=== PATIENT | female | born 1965 | race Caucasian/White ===

== ENCOUNTER → 2016-05-22 | Outpatient (CLI) | payer BC ==
[2016-05-22 14:03] LABS: EKG EKG PERFORMED
[2016-05-22 14:28] LABS: Basophils # (A) 0.1 k/uL (0-0.2); Basophils % (A) 1 %; CH 25.6; Eosinophils # (A) 0.2 k/uL (0-0.7); Eosinophils % (A) 2 %; HCT 39.8 % (34.0-46.0); HDW 2.82; HGB 12.4 gm/dL (11.4-16.0); Hypochromasia Moderate; Luc # (Auto) 0.25; Luc % (Auto) 4; Lymphocytes # (A) 1.6 k/uL (1.0-4.8); Lymphocytes % (A) 25 %; MCH 25.9 pg (25.0-35.0); MCHC 31.3 g/dL (31.0-37.0); MCV 82.9 fL (80.0-100.0); Mean Platelet Volume 8.1; Monocytes # (A) 0.5 k/uL (0-1.0); Monocytes % (A) 7 %; Neutrophils % (A) 61 %; Partial Thromboplastin Time 22.2 sec (22.0-30.0); Prothrombin Time 10.2 sec (9.0-12.0); RDW 15.2 % (11.5-15.5); WBC 6.6 k/uL (3.8-10.6); WBC (Perox) 7.15
[2016-05-22 14:30] LABS: Appearance,Urine Clear (Clear); Bilirubin,Urine Negative (Negative); Glucose,Urine (UA) Trace (Negative); Ketones,Urine Negative (Negative); Leukocyte Esterase,Urine Negative (Negative); Nitrite,Urine Negative (Negative); PH, Urine 6.5 (5.0-8.0); Protein,Urine Trace (Negative); Specific Gravity,Urine 1.019 (1.001-1.035); UA Billing (MACRO vs. MICRO) CHEM
[2016-05-22 14:42] LABS: ALT 20 U/L (9-52); AST 18 U/L (14-36); Alkaline Phosphatase 74 U/L (38-126); Anion Gap 9 mmol/L; Blood Urea Nitrogen 11 mg/dL (7-17); Calcium 10.3 mg/dL (8.4-10.2); Carbon Dioxide 29 mmol/L (22-30); Chloride 103 mmol/L (98-107); Glucose 100 mg/dL (74-99); Non-African American GFR(MDRD) >60 (>60 ml/min/1.73 sqM); Potassium 4.2 mmol/L (3.5-5.1); Sodium 141 mmol/L (137-145); Total Bilirubin 0.5 mg/dL (0.2-1.3); Total Protein 7.2 g/dL (6.3-8.2)
== END ==
LOC: LABPAT 13:54
PROVIDERS: ATTEND Orthopaedic Surgery
DX: Z01.810 Encounter for preprocedural cardiovascular examination (principal); Z01.812 Encounter for preprocedural laboratory examination
CPT/HCPCS: 80053; 81003; 85025; 85610; 85730; 87070; 93005

== ENCOUNTER → 2016-06-03 | Day surgery (SDC) | payer BC ==
[2016-05-28 16:38] VITALS: BMI 44.3
[~2016-06-03] MED LIST: ACETAMINOPHEN TAB 500 MG TAB PO ONE; DEXAMETHASONE SOD PHOSPHATE 10 MG/ML 1 ML VIAL IV ONE; HYDROmorphone 1 MG/ML 1 ML SYRINGE IVP PRN; LACTATED RINGERS 1,000 ML IV SCH; MELOXICAM 7.5 MG TAB PO ONE; MIDAZOLAM 2 MG/2 ML VIAL IV PRN; ONDANSETRON 4 MG/2 ML VIAL IVP ONE; ROPIVACAINE 246.25 MG, EPINEPHrine 0.5 MG, KETOROLAC 30 MG, cloNIDine HCL/PF 80 MCG, WA... MISCELLANE ONE; SCOPOLAMINE 1.5MG/72HR PATCH TRANSDERM ONE; TRANEXAMIC ACID 1,000 MG in SODIUM CHLORIDE 0.9% 100 ML IVPB ONE; ceFAZolin 3 GM in SODIUM CHLORIDE 0.9% 100 ML IVPB ONE
[2016-06-03 08:07] VITALS: BP 146/81; PULSE 66; RESP 18; TEMP 98.7
--- NOTE | 2016-06-03 10:35 | P.PN ---
Progress Note - Text The patient was seen in the preoperative area. There was concern of some small skin lesions around the left knee. I inspected the left knee and found 3-4 small scab-like lesions in the area of these incision site. I discussed with the patient at length the risk of infection is increased with recent skin lesions in the area of the knee. After lengthy discussion, the patient is aware of this fact, and I have planned to cancel surgery at this time, recheck her in the office in 1 week, and if the skin lesions of healed, have her scheduled for knee replacement shortly thereafter. She will then be discharged home with instructions to follow-up with me next week in the office.
== END ==
LOC: UNDOADMIN 07:04 → OR 07:04 → 2ORMAIN 07:04 → EDSTATUS 09:40 → UNDODISIN 10:15
PROVIDERS: ATTEND Orthopaedic Surgery
DX: M17.12 Unilateral primary osteoarthritis, left knee (principal); L98.9 Disorder of the skin and subcutaneous tissue, unspecified; Z53.09 Procedure and treatment not carried out because of other contraindication
CPT/HCPCS: J0171; J1885; J2795; J0735

== ENCOUNTER 2016-06-11 11:15 | Inpatient (IN) | payer BC ==
[2016-06-10 13:33] VITALS: BMI 44.3
[~2016-06-11 11:15] MED LIST changes: -LACTATED RINGERS 1,000 ML IV SCH; -SCOPOLAMINE 1.5MG/72HR PATCH TRANSDERM ONE
[2016-06-11] MEDS ORDERED: LIDOCAINE 1% 20 ML VIAL (10MG/ML) FOR IV START INTRADERMA ONE ×2 (11:30→12:04)
[2016-06-11] MEDS: LACTATED RINGERS 1,000 ML IV SCH ×2 (12:04→22:50)
[2016-06-11] MEDS ORDERED: fentaNYL (PF) 50 MCG/ML 2 ML AMP IV ONE (12:08)
[2016-06-11] MEDS ORDERED: SODIUM CHLORIDE 0.9% 100 ML BAG ONE (13:34)
[2016-06-11] MEDS ORDERED: fentaNYL (PF) 50 MCG/ML 2 ML AMP ONE (13:34)
[2016-06-11] MEDS ORDERED: PROPOFOL 10 MG/ML 20 ML VIAL IV ONE (13:34)
[2016-06-11] MEDS ORDERED: MIDAZOLAM 2 MG/2 ML VIAL ONE (13:34)
[2016-06-11] MEDS ORDERED: TRANEXAMIC ACID 1,000 MG/10 ML VIAL ONE (13:34)
[2016-06-11] MEDS ORDERED: ceFAZolin 3,000 MG in SODIUM CHLORIDE 0.9% IRRIGATIO 3,000 ML IRRIGATION ONE (14:06)
[2016-06-11] MEDS ORDERED: LACTATED RINGERS 1,000 ML IV ONE (14:19)
--- NOTE | 2016-06-11 15:03 | P.OP ---
Date of Procedure: 06/11/16 Preoperative Diagnosis: Severe osteoarthritis left knee Postoperative Diagnosis: Severe osteoarthritis left knee Procedure(s) Performed: Left total knee arthroplasty Implants: Botello [employer] Nephew Oxinium femoral component size 5, left Botello [employer]hew Nora II left nonporous tibial baseplate size 5 Botello [employer] Nephew size 9 mm Legion XLPE dished articular insert, size 5-6 Bot[employer]hew Nora II resurfacing patellar component, 32 mm All components were cemented using Carol bone cement.. The articulation is ceramic on polyethylene. Anesthesia: spinal Surgeon: Albert Box Embalmer Apprentice #1: Radha Zhu Embalmer Apprentice #2: Vane Hurt Estimated Blood Loss (ml): 50 Pathology: other (Bone and cartilage) Condition: stable Disposition: PACU Indications for Procedure: After failure of conservative treatment we discussed the surgical and nonsurgical treatment options at length. Patient wishes to proceed with a total knee arthroplasty. Complications specific to this procedure were discussed at length, including but not limited to infection, bleeding, stiffness , and nerve injury. Patient is aware of all these complications and informed consent was obtained Operative Findings: The operative findings are consistent with severe osteoarthritis of the left knee Description of Procedure: Patient was seen in the preoperative area consent was reviewed and operative site was marked with a skin marker. An adductor canal pain catheter was placed by anesthesia in the preoperative area. Patient was then brought to the operating room and given preoperative antibiotics intravenously. A spinal anesthetic was administered by the anesthesia department. A tourniquet was placed on the upper thigh and the lower extremity was prepped and draped in usual sterile fashion. A gram of transexamic acid was given. A universal timeout was then performed which confirmed the patient's name, surgical site, ALLERGIES, and consent. The lower extremity was then exsanguinated and tourniquet was inflated to 250 mmHg. A standard and anterior midline approach to the knee was performed. The skin and subcutaneous tissue was dissected down to the patellar tendon. A medial parapatellar arthrotomy was then performed. The knee was then extended, the patellar was everted, and the knee was again flexed. Anterior horns of both menisci were excised, and a release was performed to the posterior medial aspect of the knee. On gross visual inspection, there was complete loss of articular cartilage in the medial and patellofemoral joint spaces. There was also significant cartilage damage in the lateral compartment. There were multiple periarticular osteophytes which were then removed with a Ronguer. The femoral canal was then opened with the appropriate drill, and the intramedullary femoral cutting guide was then placed and set for 4 of valgus. The distal femoral cutting block was then pinned in place, and the distal femur was then cut. The cutting block was then removed and the cut was checked for flatness. Next, the sizing guide was then placed and set for 3 external rotation based off of the epicondylar axis and Whitesides line. After the femur was sized, the appropriate 4-in-1 cutting block was then pinned in place. The anterior condyles were cut without notching. The posterior and chamfer cuts were performed while protecting the collateral ligaments. The cutting block was then removed, and the femoral canal was plugged with autologous bone. Attention was then directed to the tibia. The remaining ACL was removed with a Ronguer, and the tibia was then gently subluxed forward with a large bent knee retractor. Any remaining menisci was excised. The posterior lateral corner was cauterized in order to cauterize the lateral geniculate artery. The extra medullary tibial cutting guide was then placed, set for the appropriate rotation , slope, and depth of resection. The proximal tibia cutting guide was then pinned in place. Proximal tibia was then cut and sized. Next trials were then placed with the appropriate-sized insert. The knee was able to fully extend and flex to 130 and was stable throughout all range of motion. The knee was then extended, patella everted. Patella was then measured, and then using an osteotomy guide, the patella was cut at the appropriate level. The patella was then measured and drilled and the patella trial was then placed. The knee was then taken through range of motion with the patella trial and the patella tracked normally. The knee was then extended patella trial was then removed and the patella was everted. Knee was then flexed and lug holes were drilled through the femoral trial and the femoral trial was then removed. The tibial was then exposed, and the tibial broach guide was then pinned in place after it was set for the appropriate rotation to allow for the most coverage without overhang. The tibia was then reamed and broached. The cut surfaces of bone were then irrigated with pulsatile lavage. The posterior structures were injected with the ropivacaine solution. The knee was also irrigated with Irrisept solution. The components were then opened, the cement was mixed, and the components were then cemented in place. The cement was allowed to harden with the knee in full extension. While the cement was hardening, the remaining soft tissues were then injected with a ropivacaine solution, which consisted of 246.25 mg of ropivacaine, 0.5 mg of epinephrine, 30 mg of Toradol, 80 g of clonidine, and 48.45 mL of sterile water, for a total of 100 mL of fluid injected. After the cemented hardened. The tourniquet was released, and hemostasis was obtained. A second gram of transexamic acid was given. The knee was again irrigated. The knee was again taken through range of motion and found to be stable throughout all range of motion of 0-130 , and the patella tracked normally. The fascia was then closed with #2 strata fix suture. The subcutaneous tissue was closed with 3-0 Vicryl and 3-0 strata fix. Dermabond tape was used for the skin and placed with the knee in flexion. The patient was placed in a sterile dressing. Patient was then transferred to recovery room in stable condition. The golf player assistant FELICITAS Salinas was required due the complexity surgery and the need for a skilled surgical services tech. She assisted in positioning, draping , retraction, and closure of the wound.
[2016-06-11] MEDS ORDERED: MAGNESIUM HYDROXIDE 2,400 MG/10 ML CUP PO PRN (15:23)
[2016-06-11] MEDS ORDERED: HYDROmorphone 1 MG/ML 1 ML SYRINGE IVP PRN ×3 (15:23)
[2016-06-11] MEDS ORDERED: ONDANSETRON 4 MG/2 ML VIAL IVP PRN (15:23)
[2016-06-11] MEDS ORDERED: NA PHOS,M-B/NA PHOS,DI-BA 133 ML ENEMA RECTAL PRN (15:23)
[2016-06-11] MEDS ORDERED: DIAZEPAM 5 MG TAB PO PRN ×2 (15:23)
[2016-06-11] MEDS ORDERED: NALOXONE 0.4 MG/ML 1 ML VIAL IV PRN (15:23)
[2016-06-11] MEDS ORDERED: HYDROcodone/APAP 5-325MG 1 EACH TAB PO PRN (15:23)
[2016-06-11] MEDS ORDERED: BISACODYL 10 MG SUPP RECTAL PRN (15:23)
--- NOTE | 2016-06-11 15:56 | XR ---
EXAMINATION TYPE: XR knee limited LT DATE OF EXAM: 06/11/2016 3:42 PM COMPARISON: NONE HISTORY: Knee replacement TECHNIQUE: 2 view left knee FINDINGS: Postsurgical changes are present. Tibial and femoral components of in place. No acute fract ures are evident IMPRESSION: 1. No acute fractures post knee replacement.
[2016-06-11] MEDS: SODIUM CHLORIDE 0.9% 1,000 ML IV SCH (16:22)
[2016-06-11] MEDS: HYDROcodone/APAP 5-325MG 1 EACH TAB PO PRN (18:28)
[2016-06-11] MEDS: hydrOXYzine PAMOATE 25 MG CAP PO PRN (18:29)
[2016-06-11] MEDS: SENNOSIDES-DOCUSATE SODIUM 1 EACH TAB PO SCH (20:44)
[2016-06-11] MEDS: ASPIRIN 325 MG TAB PO SCH (20:44)
[2016-06-11] MEDS: ceFAZolin 3 GM in SODIUM CHLORIDE 0.9% 100 ML IVPB SCH (23:00)
[2016-06-12] MEDS: SODIUM CHLORIDE 0.9% 1,000 ML IV SCH (05:23)
[2016-06-12] MEDS: hydrOXYzine PAMOATE 25 MG CAP PO PRN ×3 (07:07→19:01)
[2016-06-12] MEDS: HYDROcodone/APAP 5-325MG 1 EACH TAB PO PRN ×3 (07:07→19:01)
--- NOTE | 2016-06-12 08:03 | P.PN ---
Subjective Principal diagnosis: Status post total left knee arthroplasty This is a well-appearing 50-year-old female who is status post total left knee arthroplasty. This is postop day #1. Patient was seen and evaluated at bedside by Dr. Box. Patient has been up and walking to the bathroom but patient has not been up with physical therapy yet. Patient has no new complaints and is doing well. Objective - Vital Signs Vital signs: Vital Signs Temp 98.0 F 06/12/16 07:41 Pulse 60 06/12/16 07:41 Resp 17 06/12/16 07:41 BP 125/71 06/12/16 07:41 Pulse Ox 97 06/12/16 07:41 Intake & Output 06/11/16 06/12/16 06/12/16 18:59 06:59 18:59 Intake Total 4500 640 Output Total 50 1100 400 Balance 4450 -460 -400 Intake: IV 4500 640 Sodium Chloride 0.9% 1, 640 000 ml @ 80 mls/hr IV . [id number] RUI Rx#:[id number] Output: Urine 1100 400 Estimated Blood Loss 50 Other: Voiding Method Toilet # Voids 1 - Exam Vital signs are stable. Calf is soft and nontender. Incision is clean, dry, and intact. Neurovascular status intact. Patient has full foot and ankle motion. Assessment and Plan (1) Status post total knee replacement Status: Acute (2) Osteoarthritis of left knee Status: Acute Plan: Weightbearing as tolerated with a walker CPM daily Daily dressing changes, keep incision clean and dry Possible discharge home tomorrow.
[2016-06-12 08:17] LABS: Basophils % (A) 0 %; CH 26.1; CHCM 32.2; Eosinophils # (A) 0.1 k/uL (0-0.7); Eosinophils % (A) 1 %; HCT 35.5 % (34.0-46.0); HDW 2.97; HGB 11.8 gm/dL (11.4-16.0); Hypochromasia Slight; Luc # (Auto) 0.23; Luc % (Auto) 2; Lymphocytes # (A) 1.9 k/uL (1.0-4.8); Lymphocytes % (A) 16 %; MCH 27.1 pg (25.0-35.0); MCHC 33.3 g/dL (31.0-37.0); MCV 81.2 fL (80.0-100.0); Mean Platelet Volume 8.3; Monocytes # (A) 0.7 k/uL (0-1.0); Monocytes % (A) 6 %; Neutrophils # (A) 8.7 k/uL (1.3-7.7); Neutrophils % (A) 75 %; RBC 4.37 m/uL (3.80-5.40); RDW 14.7 % (11.5-15.5); WBC 11.6 k/uL (3.8-10.6); WBC (Perox) 11.36
[2016-06-12] MEDS: ceFAZolin 3 GM in SODIUM CHLORIDE 0.9% 100 ML IVPB SCH (09:25)
[2016-06-12] MEDS: ASPIRIN 325 MG TAB PO SCH ×2 (09:25→20:12)
[2016-06-12] MEDS: FAMOTIDINE 20 MG TAB PO SCH (09:26)
[2016-06-12] MEDS: MELOXICAM 7.5 MG TAB PO SCH (09:26)
[2016-06-12] MEDS: CITALOPRAM HYDROBROMIDE 20 MG TAB PO SCH (09:26)
[2016-06-12] MEDS: CALCIUM CARB-VIT D 500MG-200UN 1 EACH TAB PO SCH (09:26)
[2016-06-12] MEDS: LISINOPRIL-HCTZ 20-12.5 MG 1 EACH TAB PO SCH (09:27)
--- NOTE | 2016-06-12 14:16 | CONS ---
DATE OF CONSULTATION: 06/12/2016 REASON FOR CONSULT: Medical management requested by Dr. Box. CONSULTATION: This is a very pleasant 50-year-old patient of Dr. You. Patient has undergone left total knee arthroplasty. Some pain is present. No nausea, no vomiting. No chest pain, short of breath, did tolerate her breakfast, sitting up in a chair. Patient's chronic stable medical conditions include GERD, decreased hearing in the right ear, hypertension, osteoarthritis, obstructive sleep apnea uses CPAP machine, depression. REVIEW OF SYSTEMS: CONSTITUTIONAL: None. HEENT: Decreased hearing in the right ear. RESPIRATORY: None. CARDIOVASCULAR: None. GASTROINTESTINAL: Heartburn. GENITOURINARY: None. MUSCULOSKELETAL: Arthritic pain in the joints. DERMATOLOGICAL: None. HEMATOLOGICAL: None. LYMPHATIC: None. PSYCHIATRY: Depression, controlled. NEUROLOGICAL: None. PAST MEDICAL HISTORY: GERD, blood disorder, deafness in the right ear, hypertension, osteoarthritis, sleep apnea, bilateral knee pain, bilateral wrist pain, uses CPAP. Past surgical history of colonoscopy. Past psych history of depression. SOCIAL HISTORY: Does not smoke, alcohol occasionally. Lives by herself. Does work at [employer]. Family history of cancer, type unknown. HOME MEDICATIONS: Zantac 150 mg p.o. in the morning, Zestoretic 20/12.5 one tablet daily, Celexa 40 mg daily, calcium with vitamin D 1 tablet p.o. daily. Allergies to BIAXIN. On examination, temperature 98, pulse 60, respirations 17, blood pressure 125/71, pulse ox 97% on room air. GENERAL APPEARANCE: Well built, BMI of 44.3, propped up in the chair. EYES: Pupils equal, conjunctivae normal. HEENT: Oral cavity normal. NECK: Short, thick, JVD unable to assess. Mass not palpable. Respiratory effort normal. LUNGS: Distant breath sounds. CARDIOVASCULAR: Heart sounds muffled. No edema. ABDOMEN: Soft, nontender. Liver and spleen not palpable. LYMPHATIC: No lymph nodes palpable in neck or axillae. PSYCHIATRY: Alert and oriented x3. Mood and affect normal. NEUROLOGICAL: Pupils equal. Cranial nerves grossly intact. Power and sensation grossly intact. MUSCULOSKELETAL: Left knee in a dressing. INVESTIGATIONS: White count 11.6, hemoglobin 11.8. ASSESSMENT: 1. Left total knee arthroplasty. 2. Primary osteoarthritis of multiple joints. 3. Gastroesophageal reflux disease. 4. Decreased hearing in the right ear, chronic. 5. Essential hypertension. 6. Obstructive sleep apnea, uses CPAP machine. 7. Depression, not otherwise specified. 8. Morbid obesity, body mass index of 44.3. PLAN: Home medications are resumed. Patient uses a CPAP machine. He should see a dietitian for weight loss measures and benefit in the long run and follow with the family doctor when discharged. Patient is on aspirin for DVT prophylaxis per Dr. Box. Thank you, Dr. Box.
[2016-06-12] MEDS: SENNOSIDES-DOCUSATE SODIUM 1 EACH TAB PO SCH (20:12)
[2016-06-13 02:48] VITALS: TEMP 98.6
[2016-06-13] MEDS: hydrOXYzine PAMOATE 25 MG CAP PO PRN ×2 (03:00→08:47)
[2016-06-13] MEDS: HYDROcodone/APAP 5-325MG 1 EACH TAB PO PRN ×3 (03:01→13:56)
[2016-06-13 08:10] VITALS: BP 138/80; PULSE 66; RESP 17
--- NOTE | 2016-06-13 08:31 | P.DS ---
Providers Date of admission: 06/11/16 11:15 Expected date of discharge: 06/13/16 Attending physician: Albert Box Consults: 06/11/16 15:23 Consult Physician Routine Consulting Provider: Derek Lal Consult Reason/Comments: medical management Do you want consulting provider notified?: Yes Primary care physician: Ileana You [facility] - Discharge Diagnosis(es) (1) Status post total knee replacement Current Visit: Yes Status: Acute (2) Osteoarthritis of left knee Current Visit: Yes Status: Acute Hospital Course: This is a 50-year-old female with known history of degenerative arthritis of the left knee. The patient presents for evaluation. After discussion and consideration patient elects to proceed with total knee arthroplasty. The patient is seen preoperatively by Dr. Box and cleared for surgery. Patient is [facility] on 06/11/2016 for total knee arthroplasty. The procedures performed without complication or sequelae. The patient is doing well postoperatively. Labs and vital signs are stable on day of discharge. On day of discharge patient's knee incision is healing well. There is minimal erythema. There is no drainage noted at this time. There is minimal soft tissue swelling to the knee. Patient has full foot and ankle motion without difficulty or pain. Neurovascular status to the left lower extremity is intact. Patient is discharged home in good condition. Please see med rec for accurate list of home medications. Plan - Discharge Summary New Discharge Prescriptions: Aspirin 325 mg PO BID #60 tab HYDROcodone/APAP 5-325MG [Estero 5-325] 1 - 2 tab PO Q4-6H PRN #90 tab PRN Reason: Pain Sennosides-Docusate Sodium [Senokot-S] 1 tab PO BID #60 tablet Discharge Medication List Calcium Carbonate/Vitamin D3 [Calcium 600-Vit D3 400 Caplet] 1 tab PO DAILY 06/10 [History] Citalopram Hydrobromide [CeleXA] 40 mg PO QAM 05/28/16 [History] Lisinopril-Hctz 20-12.5 mg [Zestoretic 20-12.5] 1 tab PO QAM 05/28/16 [History] Ranitidine HCl 150 mg PO QAM 05/28/16 [History] Aspirin 325 mg PO BID #60 tab 06/13/16 [Rx] HYDROcodone/APAP 5-325MG [Estero 5-325] 1 - 2 tab PO Q4-6H PRN #90 tab 06/13/16 [ Rx] Sennosides-Docusate Sodium [Senokot-S] 1 tab PO BID #60 tablet 06/13/16 [Rx] Follow up Appointment(s)/Referral(s): Albert Box DO [Doctor of Osteopathic Medicine] - 2 Weeks Ambulatory/Diagnostic Orders: Continuous Passive Motion (CPM) Machine [DME.AMB1] Location: Determined By Patient Activity/Diet/Wound Care/Special Instructions: concerned home care - Weightbearing as tolerated with a walker CPM 5-6h daily Daily dressing changes, keep incision clean and dry May shower if no drainage from incision [facility] with questions or concerns [phone] Discharge Disposition: HOME WITH HOME HEALTH SERVICES
[2016-06-13] MEDS: ASPIRIN 325 MG TAB PO SCH (08:48)
[2016-06-13] MEDS: CITALOPRAM HYDROBROMIDE 20 MG TAB PO SCH (08:49)
[2016-06-13] MEDS: LISINOPRIL-HCTZ 20-12.5 MG 1 EACH TAB PO SCH (08:49)
[2016-06-13] MEDS: CALCIUM CARB-VIT D 500MG-200UN 1 EACH TAB PO SCH (08:49)
[2016-06-13] MEDS: FAMOTIDINE 20 MG TAB PO SCH (08:49)
[2016-06-13] MEDS: MELOXICAM 7.5 MG TAB PO SCH (08:50)
--- NOTE | 2016-06-17 10:11 | PN ---
DATE OF SERVICE: 06/13/2016 PRESENTING COMPLAINT: Left knee surgery. INTERVAL HISTORY: The patient was seen by me 06/13/2016. Left knee pain is better. Tolerating his breakfast. No chest pain or shortness of breath. ( ) therapy. REVIEW OF SYSTEMS: Done for constitutional, cardiovascular, GI, pulmonary; relevant findings as above. Current medications are reviewed. On examination, temperature 98.6, pulse 56, respirations 17, blood pressure 130/80, pulse ox 97%. GENERAL APPEARANCE: Sitting up, comfortable. EYES: Pupils equal. Conjunctivae normal. NECK: JVD not raised. Mass not palpable. RESPIRATORY: Effort normal. LUNGS: Distant breath sounds. CARDIOVASCULAR: Heart sounds muffled, no edema. ABDOMEN: Soft, nontender. Liver and spleen not palpable. PSYCHIATRY: Alert and oriented x3. Mood and affect normal. Left knee in a dressing. INVESTIGATIONS: No blood work from today. ASSESSMENT: 1. Left total knee arthroplasty. 2. Primary osteoarthritis of multiple joints. 3. Decreased hearing in the right ear, chronic. 4. Essential hypertension. 5. Altered sleep apnea with CPAP machine. 6. Depression, not otherwise specified. 7. Morbid obesity, body mass index of 44.3. PLAN: Doing well. Continue current medications and treatment plan.
== END 2016-06-13 15:00 | disposition home health service (06) | DRG 470 ==
LOC: 2ORMAIN 11:15 → 3SUR 15:13
PROVIDERS: ADMIT Orthopaedic Surgery; ATTEND Orthopaedic Surgery
PROC: 0SRD0J9 Replacement of Left Knee Joint with Synthetic Substitute, Cemented, Open Approach (ICD-10-PCS; principal; 2016-06-11 13:00)
DX: M17.12 Unilateral primary osteoarthritis, left knee (principal); Z68.41 Body mass index [BMI] 40.0-44.9, adult; I10 Essential (primary) hypertension; E66.01 Morbid (severe) obesity due to excess calories; M25.762 Osteophyte, left knee; F32.9 Major depressive disorder, single episode, unspecified; G47.33 Obstructive sleep apnea (adult) (pediatric); H91.91 Unspecified hearing loss, right ear; K21.9 Gastro-esophageal reflux disease without esophagitis; M25.531 Pain in right wrist; M25.532 Pain in left wrist; M25.561 Pain in right knee; Z80.9 Family history of malignant neoplasm, unspecified; Z79.899 Other long term (current) drug therapy; Z86.2 Personal history of diseases of the blood and blood-forming organs and certain disorders involving the immune mechanism; Z86.79 Personal history of other diseases of the circulatory system; Z88.1 Allergy status to other antibiotic agents; Z79.82 Long term (current) use of aspirin; Z83.3 Family history of diabetes mellitus; Z82.49 Family history of ischemic heart disease and other diseases of the circulatory system; Z83.2 Family history of diseases of the blood and blood-forming organs and certain disorders involving the immune mechanism
CPT/HCPCS: 85025; 88300; 94660